=== PATIENT | female | born 1965 | race Caucasian/White ===

== ENCOUNTER 2017-09-14 10:22 | Emergency (ER) | payer MEDICAID ==
[~2017-09-14] VITALS: Ht 170.2 cm; Wt 82.7 kg
[2017-09-14 10:29] VITALS: Ht 170.2 cm; Wt 82.7 kg
[2017-09-14] MEDS ORDERED: OXYCONTIN15 MG PO (10:31)
[2017-09-14 10:55] LABS: BASOPHILS 0.2 % (0-2); EOSINOPHILS 0.3 % (0-7); HEMATOCRIT 52.7 % (36.0-48.0); HEMOGLOBIN 18.9 g/dL (12-16); IMMATURE GRANULOCYTES 0.2 % (0-5); LYMPHOCYTES 8.4 % (15-50); MCH 31.5 pg (26.0-34.0); MCHC 35.9 g/dL (31.0-37.0); MCV 87.8 fL (80.0-100.0); MEAN PLATELET VOLUME 12.1 fL (7.4-10.4); MONOCYTES 3.6 % (2-11); NEUTROPHILS 87.3 % (40-80); PLATELET COUNT 281 10x3/uL (130-400); RDW 12.4 % (11.5-14.5); WBC 17.5 10x3/uL (4.8-10.8)
[2017-09-14 11:45] LABS: ALBUMIN 4.1 g/dL (3.4-5.0); ANION GAP 15.5 mmol/L (8-16); BILIRUBIN - TOTAL 0.46 mg/dL (0.2-1.3); CARBON DIOXIDE 24.4 mmol/L (21.0-32.0); POTASSIUM - SERUM 3.9 mmol/L (3.5-5.1); PROTEIN - SERUM 8.5 g/dL (6.4-8.2)
[2017-09-14 11:46] LABS: AMORPHOUS SEDIMENT >1+ /lpf (NONE SEEN); APPEARANCE TURBID (CLEAR); BACTERIA FEW /hpf (NONE SEEN); BILIRUBIN NEGATIVE (NEGATIVE); COLOR DK YELLOW (YELLOW); EPITHELIAL CELLS NSEEN /hpf (0-5); GLUCOSE NEGATIVE (NEGATIVE); KETONE NEGATIVE (NEGATIVE); MUCUS <1+ /lpf (NONE SEEN); NITRITE NEGATIVE (NEGATIVE); PROTEIN 2+ mg/dL (NEGATIVE); RED CELLS - URINE RARE /hpf (0-5); SPECIFIC GRAVITY 1.025 (1.005-1.020); UROBILINOGEN NORMAL (NORMAL)
[2017-09-14] MEDS ORDERED: TYLENOL W/CODEI1 TAB PO (13:19)
[2017-09-14] MEDS ORDERED: ZOFRAN ODT4 MG/UDTAB PO (13:19)
[2017-09-14 13:50] VITALS: BP 140/82
== END 2017-09-14 13:50 | disposition home or self-care (01) ==
LOC: D.ER 10:22
PROVIDERS: Emergency Medicine
DX: A08.4 Viral intestinal infection, unspecified (principal); R11.2 Nausea with vomiting, unspecified; J44.9 Chronic obstructive pulmonary disease, unspecified; F17.200 Nicotine dependence, unspecified, uncomplicated

== ENCOUNTER 2018-11-24 10:25 | Emergency (ER) | payer MEDICAID ==
[~2018-11-24] VITALS: Ht 170.2 cm; Wt 81.8 kg
[~2018-11-24 10:25] MED LIST: OXYCONTIN15 MG PO; TYLENOL W/CODEI1 TAB PO; ZOFRAN ODT4 MG/UDTAB PO
[2018-11-24 10:30] VITALS: Ht 170.2 cm; Wt 81.8 kg
[2018-11-24] MEDS ORDERED: PREDNISONE20 MG PO (12:08)
[2018-11-24] MEDS ORDERED: ULTRAM50 MG PO (12:08)
[2018-11-24 12:20] VITALS: BP 150/84
== END 2018-11-24 12:22 | disposition home or self-care (01) ==
LOC: D.ER 10:25
DX: M54.32 Sciatica, left side (principal); F17.210 Nicotine dependence, cigarettes, uncomplicated